=== PATIENT | male | born 1980 | race Caucasian/White ===

== ENCOUNTER → 2020-08-29 08:09 | Outpatient (CLI) | payer OTHER, SELFPAY ==
--- NOTE | ~2020-08-29 | MR_ITS ---
EXAMINATION: MR knee RT wo con DATE: 08/29/2020 08:45 INDICATION: Chronic right knee pain. TECHNIQUE: Magnetic resonance imaging (MRI) of the right knee was performed without intravenous contr ast. Sequences included coronal PD-weighted FSE, coronal PD-weighted FS FSE, sagittal T2-weighted FS E, sagittal PD-weighted FS FSE and axial PD weighted fat saturated FSE. COMPARISON: None. FINDINGS: Medial compartment: Complex tear of the body and posterior horn of the medial meniscus. This includes a longitudinal hori zontal tear plane extending from the periphery to the central portion of the inferior articular surfa ce with additional longitudinal vertical component contacting the superior and inferior articular jhon faces along the inner third. There is subluxation of a small meniscal flap arising from the inferior periphery of the meniscal body which extends inferiorly into the recess along the medial rim of the m edial tibial plateau. Articular cartilage is normal. Lateral compartment: Small radial tear at the junction of the anterior horn and body of the lateral meniscus. There is inc reased intrasubstance signal in the more posterior body of the meniscus which does not contact the ar ticular surface consistent with mucoid degeneration. Articular cartilage is normal. Patellofemoral compartment: Shallow chondral fissuring at the central aspect of the patellar apical ridge. Deeper but still parti al-thickness chondral fissuring without degenerative subchondral changes at the inferior aspect of th e medial trochlea. Ligaments and tendons: Anterior and posterior cruciate ligaments are normal. The medial collateral ligament and fibular gera ateral ligament complex are normal. The extensor mechanism is normal. The visualized medial and later al hamstring tendons as well as the iliotibial band are normal. Fluid: Physiologic amount of fluid in the joint space. No loose osteochondral bodies identified. 2.1 x 0.9 x 0.7 cm multilobulated ganglion cyst located between the posterior horn of the lateral meniscus and t he medial side of the vertical portion of the posterior cruciate ligament. Osseous/other: Normal marrow signal. No fracture or pathologic marrow replacing process. There is mild increased flu id signal in the infrapatellar fat pad. There is also mild prepatellar edema without discrete bursal fluid collection. IMPRESSION: 1. Medial and lateral meniscal tears. 2. 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 Reviewed, dictated and finalized at location B. IMPRESSION: 1. Medial and lateral meniscal tears. 2. 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
== END ==
PROVIDERS: Visit Provider Orthopaedic Surgery
DX: M25.561 Pain in right knee (principal); G89.29 Other chronic pain; S83.241A Other tear of medial meniscus, current injury, right knee, initial encounter; S83.281A Other tear of lateral meniscus, current injury, right knee, initial encounter
CPT/HCPCS: 73721